=== PATIENT | female | born 1985 | race African-American/Black ===

== ENCOUNTER 2017-01-21 08:07 | Emergency (ER) | payer MEDICAID ==
[~2017-01-21] VITALS: Ht 170.2 cm; Wt 77.0 kg
[2017-01-21 08:11] VITALS: BP 115/74
[2017-01-21] MEDS ORDERED: HYDR-519 PO (08:16)
[2017-01-21 09:44] LABS: CLARITY URINE CLEAR (CLEAR); COLOR URINE YELLOW (YELLOW); GLUCOSE URINE NEGATIVE (NEGATIVE); KETONES URINE NEGATIVE (NEGATIVE); LEUKOCYTE ESTERASE URINE NEGATIVE (NEGATIVE); NITRITE URINE NEGATIVE (NEGATIVE); OCCULT BLOOD URINE NEGATIVE (NEGATIVE); PROTEIN URINE NEGATIVE (NEGATIVE); SPECIFIC GRAVITY URINE 1.022 (1.005-1.030); UROBILINOGEN URINE 0.2 E.U./dL (0.2-1.0)
== END 2017-01-21 09:38 | disposition left against medical advice (07) ==
LOC: ER 08:07
DX: R10.32 Left lower quadrant pain (principal)
CPT/HCPCS: 81003; 81025; 99283